=== PATIENT | male | born 1990 | race Caucasian/White ===

== ENCOUNTER 2018-02-03 05:20 | Day surgery (SDC) | payer OTHER ==
[~2018-02-03] VITALS: Ht 165.1 cm; Wt 96.2 kg
[2018-02-03] VITALS (7 sets, daily range): BP systolic 113–143; BP diastolic 73–90; PULSE 82–91; TEMP 97.6–98.1
[~2018-02-03 05:20] MED LIST: DESYREL 50MG50 MG PO; EFFEXOR-XR150 MG PO; MINIPRESS2 MG PO; NASAL MOISTURIZ45 ML NS; PROVENTIL0.09 MG/A1 IH; RT ADVAIR HFA 1112 G IH; WELLBUTRIN XL300 M1 PO; ZYRTEC-D 5 MG-11 TER PO
== END 2018-02-03 10:03 | disposition home or self-care (01) ==
LOC: SDCO 05:20
DX: A63.0 Anogenital (venereal) warts (principal); F32.9 Major depressive disorder, single episode, unspecified; F41.9 Anxiety disorder, unspecified; G47.33 Obstructive sleep apnea (adult) (pediatric); J45.909 Unspecified asthma, uncomplicated
CPT/HCPCS: J1100; J1885; J2250; J2405; J2704; J3010; J7120

== ENCOUNTER 2019-04-26 12:02 | Day surgery (SDC) | payer OTHER ==
[~2019-04-26] VITALS: Ht 165.1 cm; Wt 92.5 kg
[2019-04-26 12:21] VITALS: BP 129/89; PULSE 87; TEMP 97.7
[2019-04-26] MEDS ORDERED: MIRTAZAPINE7.5 MG PO (12:35)
[2019-04-26] MEDS ORDERED: ADDERALL5 MG PO (12:37)
[2019-04-26 16:13] VITALS: BP 133/88; PULSE 96; TEMP 97.6
[2019-04-26 16:17] VITALS: TEMP 97.3
[2019-04-26 16:28] VITALS: BP 131/90; PULSE 91
[2019-04-26 16:43] VITALS: BP 135/90; PULSE 85
== END 2019-04-26 16:56 | disposition home or self-care (01) ==
LOC: SDCO 12:02
DX: A63.0 Anogenital (venereal) warts (principal); E23.0 Hypopituitarism; F41.9 Anxiety disorder, unspecified; F32.9 Major depressive disorder, single episode, unspecified; J45.909 Unspecified asthma, uncomplicated; G47.33 Obstructive sleep apnea (adult) (pediatric)
CPT/HCPCS: J1100; J1885; J2405; J2704; J3010; J7120

== ENCOUNTER 2019-06-29 05:23 | Day surgery (SDC) | payer OTHER ==
[~2019-06-29] VITALS: Ht 167.6 cm; Wt 93.0 kg
[~2019-06-29 05:23] MED LIST changes: +ADDERALL5 MG PO; +MIRTAZAPINE7.5 MG PO
[2019-06-29 05:57] VITALS: BP 131/87; PULSE 85; TEMP 98.1
--- NOTE | 2019-06-29 06:12 | NUR ---
TO RM 8 AT 0535- CALL LIGHT IN [place] FRIEND WILL BE CALLED FOR RIDE HOME.
--- NOTE | 2019-06-29 07:45 | NUR ---
DR CHONG INFORMED OF SUICIDE IDEATION. NO NEW ORDERS (PATIENT ALREADY HAS COUNSELING AT OR)
[2019-06-29 08:15] VITALS: BP 112/80; PULSE 111; TEMP 97.9
--- NOTE | 2019-06-29 08:15 | NUR ---
TO RM 8 PER CART FROM PACU. ANSWERING QUESTIONS WITH A NOD OF HIS HEAD, WITHOUT OPENING HIS EYES. DENIES PAIN OR DISCOMFORT. DENIES NAUSEA OR VOMITING. CONTINUES TO SLEEP QUIETLY
[2019-06-29 08:30] VITALS: BP 108/74; PULSE 97
--- NOTE | 2019-06-29 08:30 | NUR ---
CONTINUES TO SLEEP QUIETLY
[2019-06-29 08:45] VITALS: BP 125/70; PULSE 88
--- NOTE | 2019-06-29 08:45 | NUR ---
02 SAT 92% ON ROOM AIR. ENCOURAGED HIM TO TAKE FEW DEEP BREATHS AND 02 SATS INCREASED TO 96%. AWAKENS EASILY AND FALLS BACK TO SLEEP.
[2019-06-29 09:00] VITALS: BP 119/80; PULSE 90
--- NOTE | 2019-06-29 09:00 | NUR ---
MORE AWAKE AND SITTING UP. RECEIVED WATER AND TAKING SIPS.
[2019-06-29 09:30] VITALS: BP 130/84; PULSE 96
--- NOTE | 2019-06-29 09:30 | NUR ---
RECEIVED 2ND CUP OF WATER AND MUFFIN.
--- NOTE | 2019-06-29 09:50 | NUR ---
ATE 100% AND TOLERATED WELL. AMBULATED TO BATHROOM AND VOIDED RECEIVED SILVADENE CREAM
--- NOTE | 2019-06-29 10:08 | NUR ---
RECEIVED DISCHARGE INSTRUCTIONS AND VERBALIZED UNDERSTANDING. DISCONTINUED IV AND INT- CATHETER INTACT PATIENT FRIEND WENT TO GET THE CAR AND PATIENT GETTING DRESSED.
--- NOTE | 2019-06-29 10:15 | NUR ---
DISCHARGED PER WC BY NURSING STAFF TO PRIVATE CAR IN CARE OF JORGE SHER
== END 2019-06-29 10:45 | disposition home or self-care (01) ==
LOC: SDCO 05:23
DX: A63.0 Anogenital (venereal) warts (principal); J45.909 Unspecified asthma, uncomplicated; G47.33 Obstructive sleep apnea (adult) (pediatric); F41.9 Anxiety disorder, unspecified; F32.9 Major depressive disorder, single episode, unspecified; Z79.899 Other long term (current) drug therapy
CPT/HCPCS: J1100; J1885; J2405; J2704; J3010; J7120